=== PATIENT | female | born 1990 | race Caucasian/White ===

== ENCOUNTER 2018-04-28 16:59 | Emergency (ER) | payer OTHER, SELFPAY ==
[2018-04-28 17:21] VITALS: BP 115/59; PULSE 90; RESP 16; TEMP 36.8; O2SAT 95
[2018-04-28] MEDS: Ondansetron 4 MG/2 ML VIAL IVP (18:38)
[2018-04-28] MEDS: Lactated Ringers 1,000 ML 1000 ML IV (18:38)
[2018-04-28 18:39] LABS: Absolute Lymphocyte Count 0.65 k/cumm (1.2-3.4); Absolute Monocyte Count 0.34 k/cumm (0.11-0.7); Absolute Neutrophil Count 3.86 k/cumm (1.2-6.7); HCT 43.7 % (36.0-46.0); HGB 14.9 g/dL (12.0-15.5); Lymphocytes % 13.4; Mean Corp. HGB Concentration 34.1 g/dL (32.0-36.0); Mean Corpuscular Hemoglobin 30.5 pg (27.0-33.0); Mean Corpuscular Volume 89.4 fL (80-95); Mean Platelet Volume 10.1 fL (8.0-11.0); Neutrophils % 79.6; Platelet Count 193 x1000/uL (130-400); RBC 4.89 m/cumm (4.00-5.20); RBC Distribution Width 12.4 % (11.7-14.6); White Blood Cell Count 4.85 k/cumm (4.4-10.8)
[2018-04-28 18:41] LABS: Lipase 126 U/L (73-393)
[2018-04-28 18:46] LABS: ALT 15 U/L (12-78); AST 17 U/L (15-37); Albumin 3.7 g/dL (3.4-5.0); Alkaline Phosphatase 89 U/L (46-116); Anion Gap 10.1 mmol/L (3-11); BUN 11 mg/dL (7-18); Bilirubin, Total 0.7 mg/dL (0.2-1.0); CO2 28.9 mmol/L (21.0-32.0); CREATININE 0.65 mg/dL (0.55-1.02); Chloride 101 mmol/L (98-107); Glucose 94 mg/dL (70-100); Potassium 3.6 mmol/L (3.5-5.1); Sodium 140 mmol/L (136-145); Total Protein 8.3 g/dL (6.4-8.2)
[2018-04-28 18:51] LABS: Bilirubin Small (Negative); Blood Negative (Negative); Clarity Clear; Glucose Negative (Negative); Ketones 80 mg/dL (Negative); Leukocyte Esterase Negative (Negative); Nitrite Negative (Negative); Specific Gravity >= 1.030 (1.005-1.025); pH 6.5 (5-8)
[2018-04-28 18:52] LABS: Calcium 8.9 mg/dL (8.5-10.1)
[2018-04-28 18:56] LABS: Bacteria Negative HPF (Negative); C & S Indicated? Yes; Casts Negative LPF (Negative); Crystals Negative HPF (Negative); Epithelial Cells Few HPF (Negative); Mucus Heavy (Negative); RBC Negative (0-2)
--- NOTE | 2018-04-28 20:16 | ED.GENADUL_ITS ---
Discharge Plan Disposition Patient Disposition: HOME Discharge Details Chief Complaint: Nausea/Vomit/Diar Clinical Impression: Vomiting Reason For Visit: weakness / after 12 hour hrs Primary Care Provider: Mitzi Lozano ED Provider: Trent Aguila Home Meds and New Rx's Prescriptions: New ondansetron 4 mg film 4 mg PO TID PRN (Reason: nausea and vomiting) 5 Days Qty: 10 RF: 0 No Action PNV cmb#95-ferrous fumarate-FA [] 1 EACH tablet 1 ea PO QD Qty: 90 RF: 4 Discharge Instructions Instructions: Acute Nausea and Vomiting (ED) Additional Instructions: Please drink small amounts of fluid often in order to stay hydrated. Take Zofran as prescribed for nausea. Please contact your primary care physician to arrange follow-up. Return to the ER for any worsening or new concerning symptoms. Referrals: Mitzi Lozano [Primary Care Provider] - Medical Decision Making 20:15 --27-year-old female here with vomiting since last night. Abdomen benign. Mildly dehydrated on exam. Labs reviewed and nondiagnostic. Normal LFTs. No leukocytosis. Normal electrolytes. Patient does have some ketones in her urine. Patient given Zofran IV as well as IV fluid bolus. 21:12 --labs reviewed and notable for ketones in her urine and otherwise negative. No anion gap. No significant electrolyte abnormalities. Normal LFTs. patient reassessed. She is tolerating oral intake. Disposition decision was made weighing the risks and benefits of hospitalization versus outpatient treatment, the risk for further decompensation, and the patient's wishes. The patient was stable and requested discharge. Prior to discharge, my usual and customary return precautions were reviewed with the patient - this included follow-up instructions and reason to return to the emergency department if condition worsens, does not improve as expected, or other new concerns arise. HPI General Mode of arrival: ambulatory . Date/Time Provider Initiated Documentation: 04/28/18 17:48 . Limitations to Documentation: no limitations . Information obtained by: patient . HPI Narrative: 27-year-old female here with chief complaint of vomiting. Patient notes that she is been vomiting all day since last night. Vomit is nonbloody. She has associated nausea. No asso ciated abdominal pain. She does have mild headache, sore throat and mid back discomfort. She denies urinary symptoms. Related Data Home Medications Medication Instructions Recorded Confirmed PNV cmb#95-ferrous fumarate-FA 1 ea PO QD #90 tab 08/28/17 04/28/18 [Prenavite] ondansetron 4 mg PO TID PRN 5 Days #10 each 04/28/18 Previous Rx's Medication Instructions Recorded PNV cmb#95-ferrous fumarate-FA 1 ea PO QD #90 tab 08/28/17 [Prenavite] ondansetron 4 mg PO TID PRN 5 Days #10 each 04/28/18 Allergies Allergy/AdvReac Type Severity Reaction Status Date / Time No Known Drug Allergies Allergy Unverified 04/28/18 17:26 General Stated Complaint: Nausea/Vomit/Diar RITU: 3 Review of Systems Review of Systems All systems reviewed & are unremarkable except as noted in HPI and below Gastrointestinal Reports as per HPI, Denies abdominal pain and Denies hematemesis Genitourinary Denies dysuria PFSH Medical History Anxiety Idiopathic hyperprolactinemia Family History Sister No problems noted. Social History Smoking/Tobacco Use Status: Never Exam Const General: cooperative and no acute distress [facility] Head: normocephalic and atraumatic Mouth: mucous membranes dry Eyes Conjunctivae: normal conjunctivae Sclera: normal sclerae EOM: EOM intact bilaterally Neck Neck: trachea midline Resp Auscultation: clear to auscultation bilaterally, no rales, no rhonchi and no wheezes Cardio Jugular venous pressure: no JVD Rate: regular rate and not tachycardic Rhythm: regular rhythm GI Palpation: soft, not firm, no guarding, no masses, not rigid and nontender Back/Spine/Pelvis Back: no CVA tenderness Skin General skin exam: no rashes or lesions noted Neuro General: alert, awake, oriented x3 and tone normal Extrem General: no edema Psych Appearance: grossly normal Mental Status: mental status grossly normal Speech and Movement: speech and movement normal Course Vital Signs Temperature 36.8 C 04/28/18 17:21 Pulse 90 04/28/18 17:21 Respiratory Rate 16 04/28/18 17:21 Blood Pressure 115/59 L 04/28/18 17:21 Pulse Oximetry 95 04/28/18 17:21 Temperature 36.8 C 04/28/18 17:21 Temperature Source Temporal Artery Scan 04/28/18 17:21 Pulse 90 04/28/18 17:21 Respiratory Rate 16 04/28/18 17:21 Respiratory Effort 04/28/18 17:24 Blood Pressure 115/59 L 04/28/18 17:21 Blood Pressure Position Sitting 04/28/18 17:21 Pulse Oximetry 95 04/28/18 17:21 Oxygen Delivery Method Room Air 04/28/18 17:21 Oxygen Flow Rate 0 04/28/18 17:21 Pain Level 4 04/28/18 17:21 Lab/Test Results Lab/Test Results: 04/28/18 18:35 Urine - Reflex from Ua Urine Culture - Pending Laboratory Tests Range/Units 04/28/18 04/28/18 04/28/18 18:25 18:25 18:25 WBC (4.4-10.8) k/cumm 4.85 RBC (4.00-5.20) m/cumm 4.89 Hgb (12.0-15.5) g/dL 14.9 Hct (36.0-46.0) % 43.7 MCV (80-95) fL 89.4 MCH (27.0-33.0) pg 30.5 MCHC (32.0-36.0) g/dL 34.1 RDW (11.7-14.6) % 12.4 Plt Count (130-400) x1000/uL 193 MPV (8.0-11.0) fL 10.1 Immature Gran % 0.0 Neutrophils % 79.6 Lymphocytes % 13.4 Monocytes % 7.0 Eosinophils % 0.0 Basophils % 0.0 Absolute Neutrophils (1.2-6.7) k/cumm 3.86 Absolute Lymphocytes (1.2-3.4) k/cumm 0.65 L Absolute Monocytes (0.11-0.7) k/cumm 0.34 Absolute Eosinophils (0.0-0.7) k/cumm 0.00 Absolute Basophils (0.0-0.2) k/cumm 0.00 Sodium (136-145) mmol/L 140 Potassium (3.5-5.1) mmol/L 3.6 Chloride (98-107) mmol/L 101 Carbon Dioxide (21.0-32.0) mmol/L 28.9 Anion Gap (3-11) mmol/L 10.1 BUN (7-18) mg/dL 11 Creatinine (0.55-1.02) mg/dL 0.65 Estimated GFR/1.73 m2 (mL/min/1.73m2) >= 60.00 Glucose (70-100) mg/dL 94 Calcium (8.5-10.1) mg/dL 8.9 Total Bilirubin (0.2-1.0) mg/dL 0.7 AST (15-37) U/L 17 ALT (12-78) U/L 15 Alkaline Phosphatase (46-116) U/L 89 Total Protein (6.4-8.2) g/dL 8.3 H Albumin (3.4-5.0) g/dL 3.7 Lipase (73-393) U/L 126 Urine Color (Yellow) Urine Clarity Urine pH (5-8) Ur Specific [place] (1.005-1.025) Urine Protein (Negative) mg/dL Urine Ketones (Negative) mg/dL Urine Blood (Negative) Urine Nitrite (Negative) Urine Bilirubin (Negative) Urine Urobilinogen (Up TO 0.2) EU/dL Ur Leukocyte Esterase (Negative) Urine RBC (0-2) Urine WBC (0-5) HPF Ur Epithelial Cells (Negative) HPF Urine Crystals (Negative) HPF Urine Bacteria (Negative) HPF Urine Casts (Negative) LPF Urine Mucus (Negative) Ur Culture Indicated? Urine Glucose (Negative) mg/dL Range/Units 04/28/18 18:35 WBC (4.4-10.8) k/cumm RBC (4.00-5.20) m/cumm Hgb (12.0-15.5) g/dL Hct (36.0-46.0) % MCV (80-95) fL MCH (27.0-33.0) pg MCHC (32.0-36.0) g/dL RDW (11.7-14.6) % Plt Count (130-400) x1000/uL MPV (8.0-11.0) fL Immature Gran % Neutrophils % Lymphocytes % Monocytes % Eosinophils % Basophils % Absolute Neutrophils (1.2-6.7) k/cumm Absolute Lymphocytes (1.2-3.4) k/cumm Absolute Monocytes (0.11-0.7) k/cumm Absolute Eosinophils (0.0-0.7) k/cumm Absolute Basophils (0.0-0.2) k/cumm Sodium (136-145) mmol/L Potassium (3.5-5.1) mmol/L Chloride (98-107) mmol/L Carbon Dioxide (21.0-32.0) mmol/L Anion Gap (3-11) mmol/L BUN (7-18) mg/dL Creatinine (0.55-1.02) mg/dL Estimated GFR/1.73 m2 (mL/min/1.73m2) Glucose (70-100) mg/dL Calcium (8.5-10.1) mg/dL Total Bilirubin (0.2-1.0) mg/dL AST (15-37) U/L ALT (12-78) U/L Alkaline Phosphatase (46-116) U/L Total Protein (6.4-8.2) g/dL Albumin (3.4-5.0) g/dL Lipase (73-393) U/L Urine Color (Yellow) Yellow Urine Clarity Clear Urine pH (5-8) 6.5 Ur Specific [place] (1.005-1.025) >= 1.030 H Urine Protein (Negative) mg/dL Trace H Urine Ketones (Negative) mg/dL 80 H Urine Blood (Negative) Negative Urine Nitrite (Negative) Negative Urine Bilirubin (Negative) Small H Urine Urobilinogen (Up TO 0.2) EU/dL 1.0 H Ur Leukocyte Esterase (Negative) Negative Urine RBC (0-2) Negative Urine WBC (0-5) HPF 5-10 Ur Epithelial Cells (Negative) HPF Few Urine Crystals (Negative) HPF Negative Urine Bacteria (Negative) HPF Negative Urine Casts (Negative) LPF Negative Urine Mucus (Negative) Heavy Ur Culture Indicated? Yes Urine Glucose (Negative) mg/dL Negative POC- Test(urine) Negative
[2018-04-28 20:40] LABS: HCG Qual (Serum) Negative
[2018-04-28 20:52] VITALS: BP 105/67; PULSE 67; RESP 16; TEMP 37.1; O2SAT 99
== END 2018-04-28 21:27 | disposition home or self-care (01) ==
PROVIDERS: Emergency Provider Student in an Organized Health Care Education/Training Program; PCP Nurse Practitioner Family
DX: R11.2 Nausea with vomiting, unspecified (principal); E86.0 Dehydration
CPT/HCPCS: 36415; 80053; 81025; 83690; 96361; 96374; 99284; 81003; 81015; 84703; 85025; 87086; J2405

== ENCOUNTER 2018-06-16 07:32 | Emergency (ER) | payer OTHER, SELFPAY ==
[2018-06-16 07:37] VITALS: BP 112/68; PULSE 93; RESP 12; TEMP 37.1; O2SAT 97
--- NOTE | 2018-06-16 07:57 | W.ED.GENAD ---
Discharge Plan Disposition Patient Disposition: HOME Condition: Stable Discharge Details Chief Complaint: Nausea/Vomit/Diar Clinical Impression: Nausea and vomiting Primary Care Provider: Mitzi Lozano ED Provider: Pati Aguila Home Meds and New Rx's Prescriptions: No Action No Known Home Meds RF: 0 Discharge Instructions Instructions: Acute Nausea and Vomiting (ED) Additional Instructions: Please return immediately to the emergency department if you develop any new or worsening symptoms or if you become otherwise concerned. It is extremely important that you make an appointment to be seen as soon as possible in follow-up by your primary care doctor. Referrals: Mitzi Lozano [Primary Care Provider] - Discharge Data Discharge Date/Time-TO BE ENTERED AT DEPARTURE: 06/16/18 11:47 Medical Decision Making Kathie Gil is a woman without reported history of medical problems who presented to the emergency department with subjective fevers yesterday and vomiting and diarrhea that began yesterday with vomiting persisting into this morning. On exam patient is well and nontoxic appearing. She has benign cardiopulmonary exam and a benign abdominal exam. There are no intraoral abnormalities. Concern for gastroenteritis versus influenza versus other. Exam/history is not consistent with acute emergent intra-abdominal process, meningitis, sepsis, acute emergent intracranial process, dental abscess or infection. Plan for screening labs, IV fluid hydration, IV Zofran. Will monitor and reassess. Patient reports feeling much better after Zofran and IV fluids. Taking PO without issue. She requests discharge to home. Patient reports that she has Zofran at home from a prior prescription, and does not want a new prescription at this time. Patient passed p.o. challenge without issue. I had a lengthy discussion with the patient regarding return to emergency department precautions, importance of outpatient follow-up with her PCP, and home care. Patient verbalized understanding the plan was amenable. All questions were answered. Medical Records Medical records reviewed: Yes I reviewed the patient's medical records. Lab Data Lab results reviewed: Yes I reviewed the patient's lab results. 06/16/18 08:10 Nasopharynx Influenza Types A,B Antigen - Final Laboratory Tests Range/Units 06/16/18 06/16/18 06/16/18 07:53 07:53 08:36 WBC (4.4-10.8) k/cumm 7.34 RBC (4.00-5.20) m/cumm 4.73 Hgb (12.0-15.5) g/dL 14.2 Hct (36.0-46.0) % 42.9 MCV (80-95) fL 90.7 MCH (27.0-33.0) pg 30.0 MCHC (32.0-36.0) g/dL 33.1 RDW (11.7-14.6) % 13.6 Plt Count (130-400) x1000/uL 240 MPV (8.0-11.0) fL 10.0 Immature Gran % 0.0 Neutrophils % 89.8 Lymphocytes % 7.5 Monocytes % 2.5 Eosinophils % 0.1 Basophils % 0.1 Absolute Neutrophils (1.2-6.7) k/cumm 6.59 Absolute Lymphocytes (1.2-3.4) k/cumm 0.55 L Absolute Monocytes (0.11-0.7) k/cumm 0.18 Absolute Eosinophils (0.0-0.7) k/cumm 0.01 Absolute Basophils (0.0-0.2) k/cumm 0.01 Sodium (136-145) mmol/L 137 Potassium (3.5-5.1) mmol/L 4.2 Chloride (98-107) mmol/L 98 Carbon Dioxide (21.0-32.0) mmol/L 27.4 Anion Gap (3-11) mmol/L 11.6 H BUN (7-18) mg/dL 15 Creatinine (0.55-1.02) mg/dL 0.64 Estimated GFR/1.73 m2 (mL/min/1.73m2) >= 60.00 Glucose (70-100) mg/dL 122 H Calcium (8.5-10.1) mg/dL 8.8 Total Bilirubin (0.2-1.0) mg/dL 0.8 AST (15-37) U/L 27 ALT (12-78) U/L 19 Alkaline Phosphatase (46-116) U/L 96 Total Protein (6.4-8.2) g/dL 8.6 H Albumin (3.4-5.0) g/dL 4.2 Urine Color (Yellow) Yellow Urine Clarity Clear Urine pH (5-8) 8.5 H Ur Specific [place] (1.005-1.025) 1.015 Urine Protein (Negative) mg/dL 30 H Urine Ketones (Negative) mg/dL 40 H Urine Blood (Negative) Negative Urine Nitrite (Negative) Negative Urine Bilirubin (Negative) Negative Urine Urobilinogen (Up TO 0.2) EU/dL 1.0 H Ur Leukocyte Esterase (Negative) Negative Urine RBC (0-2) 0-2 Urine WBC (0-5) HPF 3-5 Ur Epithelial Cells (Negative) HPF Many Urine Crystals (Negative) HPF Negative Urine Bacteria (Negative) HPF Few Urine Casts (Negative) LPF Negative Urine Mucus (Negative) Moderate Urine Other (Negative) Few renal Ur Culture Indicated? No/sq. contamination Urine Glucose (Negative) mg/dL Negative HPI General Mode of arrival: ambulatory. Date/Time Provider Initiated Documentation: 06/16/18 07:57. Limitations to Documentation: no limitations. Information obtained by: patient and RN notes reviewed. HPI Narrative: Kathie Gil is a 27-year-old woman without reported medical problems presenting to the emergency department for nausea, vomiting, diarrhea. Patient reports that she has had a mild nonproductive cough for the past week. 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 Patient reports the vomiting persisted throughout the night and into this morning. She also had some diarrhea last night that has resolved. She has not attempted to eat or drink since vomiting began last night. Patient reports that she has had chronic pain to her left upper canine for the past month due to an impacted tooth. She reports that the pain has been unchanged. She has had no swelling or drainage around the area of pain. She reports mild generalized abdominal pain that began after she started vomiting that she feels is related to vomiting repeatedly. She denies headaches or any other pain. No shortness of breath, no rash, no focal weakness. Related Data Home Medications Medication Instructions Recorded Confirmed Unknown [No Known Home Meds] 06/16/18 06/16/18 Allergies Allergy/AdvReac Type Severity Reaction Status Date / Time No Known Drug Allergies Allergy Unverified 06/16/18 07:41 General Stated Complaint: Nausea/Vomit/Diar RITU: 3 Review of Systems Review of Systems Constitutional: Reports subjective fevers Eyes: denies eye pain ENT: denies facial pain, sore throat, reports chronic unchanged dental Cardiovascular: denies chest pain, edema Respiratory: denies SOB, reports mild cough cough GI: Reports mild abdominal pain, vomiting, diarrhea : denies flank pain MSK: denies back pain, neck pain, arthralgias, myalgias Skin: denies rash Neuro: denies headaches, numbness, weakness PFSH Medical History Anxiety Idiopathic hyperprolactinemia Social History Smoking/Tobacco Use Status: Never Drug use: Never Substance use type: does not use Do you feel safe at home: Yes Do you feel safe in your relationship?: Yes Female Reproductive History Menstrual control method: none History History 2 Para 2 Hx # Term Pregnancies Multiple births Hx # Pregnancies Ectopic pregnancies AB induced Hx Number of Living Children AB spontaneous Exam Narrative Exam Narrative: Constitutional: well and [id number], pleasant, conversing normally HENT: head atraumatic/normocephalic/normal inspection, mucous membranes moist. Tenderness or edema over left upper canine in area of chronic pain, no intraoral lesion, normal posterior pharynx, benign intraoral exam. Eyes: conjunctiva normal, sclera normal, pupils 3mm b/l Neck: no stridor, normal ROM, trachea midline Chest: normal inspection Resp: normal work of breathing, LCTAB Cardio: normal rate, normal rhythm, no murmur appreciated GI: abdomen soft, non-tender, non-distended Back: normal inspection, no rash Skin: warm, dry, normal color, no rash Neuro: alert, not altered, grossly non-focal, normal tone Ext: no edema Psych: normal mood, normal affect, normal behavior Course Vital Signs Temperature 37.1 C 06/16/18 07:37 Pulse 93 H 06/16/18 07:37 Respiratory Rate 12 06/16/18 07:37 Blood Pressure 112/68 06/16/18 07:37 Pulse Oximetry 97 06/16/18 07:37 Temperature 37.1 C 06/16/18 07:37 Temperature Source Temporal Artery Scan 06/16/18 07:37 Pulse 93 H 06/16/18 07:37 Respiratory Rate 12 06/16/18 07:37 Respiratory Effort Non-Labored 06/16/18 07:38 Blood Pressure 112/68 06/16/18 07:37 Blood Pressure Position Sitting 06/16/18 07:37 Pulse Oximetry 97 06/16/18 07:37 Oxygen Delivery Method Room Air 06/16/18 07:37 Oxygen Flow Rate 0 06/16/18 07:37 Pain Level 0 06/16/18 07:37
[2018-06-16] MEDS: Normal Saline 1,000 ML 1000 ML IV ×2 (07:59→09:47)
--- NOTE | 2018-06-16 08:11 | ED.GENADUL_ITS ---
Discharge Plan Disposition Patient Disposition: HOME Condition: Stable Discharge Details Chief Complaint: Nausea/Vomit/Diar Clinical Impression: Nausea and vomiting Primary Care Provider: Mitzi Lozano ED Provider: Pati Aguila Home Meds and New Rx's Prescriptions: No Action No Known Home Meds RF: 0 Discharge Instructions Instructions: Acute Nausea and Vomiting (ED) Additional Instructions: Please return immediately to the emergency department if you develop any new or worsening symptoms or if you become otherwise concerned. It is extremely important that you make an appointment to be seen as soon as possible in follow- up by your primary care doctor. Referrals: Mitzi Lozano [Primary Care Provider] - Discharge Data Discharge Date/Time-TO BE ENTERED AT DEPARTURE: 06/16/18 11:47 Medical Decision Making Kathie Gil is a woman without reported history of medical problems who presented to the emergency department with subjective fevers yesterday and vomiting and diarrhea that began yesterday with vomiting persisting into this morning. On exam patient is well and nontoxic appearing. She has benign cardiopulmonary exam and a benign abdominal exam. There are no intraoral abnormalities. Concern for gastroenteritis versus influenza versus other. Exam/history is not consistent with acute emergent intra-abdominal process, meningitis, sepsis, acute emergent intracranial process, dental abscess or infection. Plan for screening labs, IV fluid hydration, IV Zofran. Will monitor and reassess. Patient reports feeling much better after Zofran and IV fluids. Taking PO without issue. She requests discharge to home. Patient reports that she has Zofran at home from a prior prescription, and does not want a new prescription at this time. Patient passed p.o. challenge without issue. I had a lengthy discussion with the patient regarding return to emergency department precautions, importance of outpatient follow-up with her PCP, and home care. Patient verbalized understanding the plan was amenable. All questions were answered. Medical Records Medical records reviewed: Yes I reviewed the patient's medical records. Lab Data Lab results reviewed: Yes I reviewed the patient's lab results. 06/16/18 08:10 Nasopharynx Influenza Types A,B Antigen - Final Laboratory Tests Range/Units 06/16/18 06/16/18 06/16/18 07:53 07:53 08:36 WBC (4.4-10.8) k/cumm 7.34 RBC (4.00-5.20) m/cumm 4.73 Hgb (12.0-15.5) g/dL 14.2 Hct (36.0-46.0) % 42.9 MCV (80-95) fL 90.7 MCH (27.0-33.0) pg 30.0 MCHC (32.0-36.0) g/dL 33.1 RDW (11.7-14.6) % 13.6 Plt Count (130-400) x1000/uL 240 MPV (8.0-11.0) fL 10.0 Immature Gran % 0.0 Neutrophils % 89.8 Lymphocytes % 7.5 Monocytes % 2.5 Eosinophils % 0.1 Basophils % 0.1 Absolute Neutrophils (1.2-6.7) k/cumm 6.59 Absolute Lymphocytes (1.2-3.4) k/cumm 0.55 L Absolute Monocytes (0.11-0.7) k/cumm 0.18 Absolute Eosinophils (0.0-0.7) k/cumm 0.01 Absolute Basophils (0.0-0.2) k/cumm 0.01 Sodium (136-145) mmol/L 137 Potassium (3.5-5.1) mmol/L 4.2 Chloride (98-107) mmol/L 98 Carbon Dioxide (21.0-32.0) mmol/L 27.4 Anion Gap (3-11) mmol/L 11.6 H BUN (7-18) mg/dL 15 Creatinine (0.55-1.02) mg/dL 0.64 Estimated GFR/1.73 m2 (mL/min/1.73m2) >= 60.00 Glucose (70-100) mg/dL 122 H Calcium (8.5-10.1) mg/dL 8.8 Total Bilirubin (0.2-1.0) mg/dL 0.8 AST (15-37) U/L 27 ALT (12-78) U/L 19 Alkaline Phosphatase (46-116) U/L 96 Total Protein (6.4-8.2) g/dL 8.6 H Albumin (3.4-5.0) g/dL 4.2 Urine Color (Yellow) Yellow Urine Clarity Clear Urine pH (5-8) 8.5 H Ur Specific [place] (1.005-1.025) 1.015 Urine Protein (Negative) mg/dL 30 H Urine Ketones (Negative) mg/dL 40 H Urine Blood (Negative) Negative Urine Nitrite (Negative) Negative Urine Bilirubin (Negative) Negative Urine Urobilinogen (Up TO 0.2) EU/dL 1.0 H Ur Leukocyte Esterase (Negative) Negative Urine RBC (0-2) 0-2 Urine WBC (0-5) HPF 3-5 Ur Epithelial Cells (Negative) HPF Many Urine Crystals (Negative) HPF Negative Urine Bacteria (Negative) HPF Few Urine Casts (Negative) LPF Negative Urine Mucus (Negative) Moderate Urine Other (Negative) Few renal Ur Culture Indicated? No/sq. contamination Urine Glucose (Negative) mg/dL Negative HPI General Mode of arrival: ambulatory . Date/Time Provider Initiated Documentation: 06/16/18 07:57 . Limitations to Documentation: no limitations . Information obtained by: patient and RN notes reviewed . HPI Narrative: Kathie Gil is a 27-year-old woman without reported medical problems presenting to the emergency department for nausea, vomiting, diarrhea. Patient reports that she has had a mild nonproductive cough for the past week. 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 Patient reports the vomiting persisted throughout the night and into this morning. She also had some diarrhea last night that has resolved. She has not attempted to eat or drink since vomiting began last night. Patient reports that she has had chronic pain to her left upper canine for the past month due to an impacted tooth. She reports that the pain has been unchanged. She has had no swelling or drainage around the area of pain. She reports mild generalized abdominal pain that began after she started vomiting that she feels is related to vomiting repeatedly. She denies headaches or any other pain. No shortness of breath, no rash, no focal weakness. Related Data Home Medications Medication Instructions Recorded Confirmed Unknown [No Known Home Meds] 06/16/18 06/16/18 Allergies Allergy/AdvReac Type Severity Reaction Status Date / Time No Known Drug Allergies Allergy Unverified 06/16/18 07:41 General Stated Complaint: Nausea/Vomit/Diar RITU: 3 Review of Systems Review of Systems Constitutional: Reports subjective fevers Eyes: denies eye pain ENT: denies facial pain, sore throat, reports chronic unchanged dental Cardiovascular: denies chest pain, edema Respiratory: denies SOB, reports mild cough cough GI: Reports mild abdominal pain, vomiting, diarrhea : denies flank pain MSK: denies back pain, neck pain, arthralgias, myalgias Skin: denies rash Neuro: denies headaches, numbness, weakness PFSH Medical History Anxiety Idiopathic hyperprolactinemia Social History Smoking/Tobacco Use Status: Never Drug use: Never Substance use type: does not use Do you feel safe at home: Yes Do you feel safe in your relationship?: Yes Female Reproductive History Menstrual control method: none History History 2 Para 2 Hx # Term Pregnancies Multiple births Hx # Pregnancies Ectopic pregnancies AB induced Hx Number of Living Children AB spontaneous Exam Narrative Exam Narrative: Constitutional: well and [id number], pleasant, convers ing normally HENT: head atraumatic/normocephalic/normal inspection, mucous membranes moist. Tenderness or edema over left upper canine in area of chronic pain, no intraoral lesion, normal posterior pharynx, benign intraoral exam. Eyes: conjunctiva normal, sclera normal, pupils 3mm b/l Neck: no stridor, normal ROM, trachea midline Chest: normal inspection Resp: normal work of breathing, LCTAB Cardio: normal rate, normal rhythm, no murmur appreciated GI: abdomen soft, non-tender, non-distended Back: normal inspection, no rash Skin: warm, dry, normal color, no rash Neuro: alert, not altered, grossly non-focal, normal tone Ext: no edema Psych: normal mood, normal affect, normal behavior Course Vital Signs Temperature 37.1 C 06/16/18 07:37 Pulse 93 H 06/16/18 07:37 Respiratory Rate 12 06/16/18 07:37 Blood Pressure 112/68 06/16/18 07:37 Pulse Oximetry 97 06/16/18 07:37 Temperature 37.1 C 06/16/18 07:37 Temperature Source Temporal Artery Scan 06/16/18 07:37 Pulse 93 H 06/16/18 07:37 Respiratory Rate 12 06/16/18 07:37 Respiratory Effort Non-Labored 06/16/18 07:38 Blood Pressure 112/68 06/16/18 07:37 Blood Pressure Position Sitting 06/16/18 07:37 Pulse Oximetry 97 06/16/18 07:37 Oxygen Delivery Method Room Air 06/16/18 07:37 Oxygen Flow Rate 0 06/16/18 07:37 Pain Level 0 06/16/18 07:37
[2018-06-16] MEDS: Ondansetron 4 MG/2 ML VIAL IVP (08:15)
[2018-06-16 08:24] LABS: Absolute Basophil Count 0.01 k/cumm (0.0-0.2); Absolute Eosinophil Count 0.01 k/cumm (0.0-0.7); Absolute Lymphocyte Count 0.55 k/cumm (1.2-3.4); Absolute Monocyte Count 0.18 k/cumm (0.11-0.7); Absolute Neutrophil Count 6.59 k/cumm (1.2-6.7); Basophils % 0.1; Eosinophils % 0.1; HCT 42.9 % (36.0-46.0); HGB 14.2 g/dL (12.0-15.5); Lymphocytes % 7.5; Mean Corp. HGB Concentration 33.1 g/dL (32.0-36.0); Mean Corpuscular Volume 90.7 fL (80-95); Monocytes % 2.5; Neutrophils % 89.8; Platelet Count 240 x1000/uL (130-400); RBC 4.73 m/cumm (4.00-5.20); RBC Distribution Width 13.6 % (11.7-14.6); White Blood Cell Count 7.34 k/cumm (4.4-10.8)
[2018-06-16 08:36] LABS: ALT 19 U/L (12-78); AST 27 U/L (15-37); Albumin 4.2 g/dL (3.4-5.0); Alkaline Phosphatase 96 U/L (46-116); Anion Gap 11.6 mmol/L (3-11); BUN 15 mg/dL (7-18); Bilirubin, Total 0.8 mg/dL (0.2-1.0); CO2 27.4 mmol/L (21.0-32.0); CREATININE 0.64 mg/dL (0.55-1.02); Calcium 8.8 mg/dL (8.5-10.1); Chloride 98 mmol/L (98-107); Glucose 122 mg/dL (70-100); Potassium 4.2 mmol/L (3.5-5.1); Sodium 137 mmol/L (136-145); Total Protein 8.6 g/dL (6.4-8.2)
[2018-06-16 08:47] LABS: Bilirubin Negative (Negative); Blood Negative (Negative); Clarity Clear; Glucose Negative (Negative); Ketones 40 mg/dL (Negative); Leukocyte Esterase Negative (Negative); Nitrite Negative (Negative); Specific Gravity 1.015 (1.005-1.025); pH 8.5 (5-8)
[2018-06-16 08:57] LABS: Bacteria Few HPF (Negative); C & S Indicated? No/Sq. Contamination; Casts Negative LPF (Negative); Crystals Negative HPF (Negative); Epithelial Cells Many HPF (Negative); Mucus Moderate (Negative); Other Cells Few Renal (Negative); RBC 0-2 (0-2)
== END 2018-06-16 11:47 | disposition home or self-care (01) ==
PROVIDERS: Emergency Provider Student in an Organized Health Care Education/Training Program; PCP Nurse Practitioner Family
DX: R11.2 Nausea with vomiting, unspecified (principal)
CPT/HCPCS: 36415; 80053; 81025; 87449; 96361; 96374; 99284; 81003; 81015; 85025; J2405

== ENCOUNTER 2018-12-10 09:18 | Emergency (ER) | payer OTHER, SELFPAY ==
[2018-12-10 09:23] VITALS: BP 111/72; PULSE 82; RESP 20; TEMP 37; O2SAT 98
[2018-12-10 09:52] LABS: Bilirubin Negative (Negative); Blood Moderate (Negative); Clarity Cloudy (Clear); Glucose Negative (Negative); Ketones Negative (Negative); Leukocyte Esterase Small (Negative); Nitrite Positive (Negative); Urobilinogen 0.2 EU/dL (Up TO 0.2)
[2018-12-10] MEDS: Ondansetron 4 MG/2 ML VIAL IVP (09:56)
[2018-12-10 09:57] LABS: Abs Immature Grans 0.01 k/cumm (0.0-0.09); Absolute Basophil Count 0.02 k/cumm (0.0-0.2); Absolute Eosinophil Count 0.02 k/cumm (0.0-0.7); Absolute Lymphocyte Count 0.51 k/cumm (1.2-3.4); Absolute Monocyte Count 0.38 k/cumm (0.11-0.7); Absolute Neutrophil Count 5.31 k/cumm (1.2-6.7); Basophils % 0.3; Eosinophils % 0.3; HCT 42.9 % (36.0-46.0); HGB 14.4 g/dL (12.0-15.5); Immature Grans % 0.2; Lymphocytes % 8.2; Mean Corp. HGB Concentration 33.6 g/dL (32.0-36.0); Mean Corpuscular Hemoglobin 30.3 pg (27.0-33.0); Mean Corpuscular Volume 90.1 fL (80-95); Mean Platelet Volume 9.9 fL (8.0-11.0); Monocytes % 6.1; Neutrophils % 84.9; Platelet Count 178 x1000/uL (130-400); RBC 4.76 m/cumm (4.00-5.20); RBC Distribution Width 12.7 % (11.7-14.6); White Blood Cell Count 6.25 k/cumm (4.4-10.8)
[2018-12-10] MEDS: Normal Saline 1,000 ML 1000 ML IV (10:00)
[2018-12-10 10:12] LABS: ALT 16 U/L (14-59); AST 16 U/L (15-37); Albumin 4.5 g/dL (3.4-5.0); Alkaline Phosphatase 78 U/L (46-116); Anion Gap 10.2 mmol/L (3-11); BUN 8 mg/dL (7-18); Bilirubin, Total 0.5 mg/dL (0.2-1.0); CO2 25.8 mmol/L (21.0-32.0); CREATININE 0.67 mg/dL (0.55-1.02); Calcium 8.9 mg/dL (8.5-10.1); Chloride 104 mmol/L (98-107); Glucose 89 mg/dL (70-100); Lipase 118 U/L (73-393); Potassium 3.8 mmol/L (3.5-5.1); Sodium 140 mmol/L (136-145); Total Protein 8.3 g/dL (6.4-8.2)
[2018-12-10 10:13] LABS: Bacteria Many HPF (Negative); C & S Indicated? Yes; Casts Negative LPF (Negative); Crystals Negative HPF (Negative); Epithelial Cells Few HPF (Negative); Mucus Negative (Negative); RBC 20-50 (0-2)
--- NOTE | 2018-12-10 10:25 | W.ED.GENAD ---
Discharge Plan Disposition Patient Disposition: HOME Condition: Good Discharge Details Chief Complaint: Abd Prob Clinical Impression: Left renal stone, UTI (urinary tract infection) Primary Care Provider: Mitzi Lozano ED Provider: Lokesh Laws Home Meds and New Rx's Prescriptions: New cephalexin [Keflex] 500 mg capsule 500 mg PO Q6H 3 Days Qty: 12 RF: 0 Discharge Instructions Instructions: Urinary Tract Infection in Women (ED) Additional Instructions: Your CT scan shows evidence that you may have passed a small kidney stone. You have a very mild urinary tract infection. Please take the antibiotic as directed. Please take 10 to 12 cups of water per day, take Tylenol and Motrin as needed for pain. You do have a renal cyst on your left that does require a renal ultrasound in the future. Please discuss this with your primary care provider. If you notice any worsening of your symptoms, or any new symptoms such as vomiting, diarrhea, fever, chills, shortness of breath, chest pain, numbness, weakness, or fainting , please return immediately to the emergency department for reevaluation. Please follow up with your primary care provider as soon as possible for reassessment and reevaluation. As always, it was a pleasure participating in your medical care today. Referrals: Mitzi Lozano [Primary Care Provider] - Discharge Data Discharge Date/Time-TO BE ENTERED AT DEPARTURE: 12/10/18 12:15 Medical Decision Making This is a pleasant 28-year-old female who presents today for evaluation of 2 episodes of vomiting mild nausea left-sided flank pain and chills. Physical exam demonstrates a notably unremarkable abdomen, no pain at McBurney's point, negative Nielson sign. She does have minimal left CVA tenderness, positive left heel strike for left CVA tenderness. Signs and symptoms appear inconsistent with appendicitis, more concerning for urolithiasis or gastroenteritis. We will rehydrate, get basic labs and urinalysis, Noncon CT to evaluate for kidney stone reassess. CT results have returned, there is evidence of mild hydronephrosis giving the signs and symptoms concerning for recently passed stone. Particularly on the left. Bedside demonstrates a small stone in the renal pelvis, no other abnormalities. Her work-up is relatively benign, no white count, no fever or chills, lipase normal, urinalysis is positive for nitrates, notable elevation in RBCs, minimal WBCs. With no evidence of current retained stone, do suspect that the patient did pass a stone. I feel that infection is notably unlikely and clinically inconsistent especially in regards to pyelonephritis or severe infection however because of her being nitrite positive, I do feel that out of an abundance of precaution conservative treatment with Keflex is certainly reasonable at this time. We will give antibiotics for treatment of very mild UTI, recommend continued hydration with NSAIDs as needed for pain. Of note the patient has near complete resolution of her pain at this time. I have extensively reviewed the treatment plan and discharge instructions with the patient. I have addressed all patient concerns at this time. The patient was made aware of what symptoms to monitor for that would warrant a return to the emergency department. Discussed the plan with the patient, they demonstrate verbal understanding and agreement with our assessment and plan at this time. HPI General Date/Time Provider Initiated Documentation: 12/10/18 09:25. HPI Narrative: This is a 28-year-old female with no significant past medical history who presents today for evaluation of nausea, 2 episodes of vomiting that started this morning with no evidence of hematemesis or coffee-ground emesis, as well as symptoms of mild chills and left-sided flank pain and suprapubic pain. Patient denies any dysuria, increase in urinary frequency or pressure. She denies any vaginal discharge or pelvic pain. She denies any significant abdominal pain. She denies any diarrhea. No previous abdominal surgeries. She has had 2 vaginal deliveries. She denies any aggravating or relieving factors. She does admit to taking 2 or 3 shots of aisha yesterday but that is all. She has no other complaints at this time. No other modifying factors. She denies any other sick contacts, history of kidney stones, or other complaints. Related Data Home Medications Medication Instructions Recorded Confirmed cephalexin [Keflex] 500 mg PO Q6H 3 Days #12 cap 12/10/18 Previous Rx's Medication Instructions Recorded cephalexin [Keflex] 500 mg PO Q6H 3 Days #12 cap 12/10/18 Allergies Allergy/AdvReac Type Severity Reaction Status Date / Time No Known Drug Allergies Allergy Unverified 12/10/18 09:26 General Stated Complaint: Abd Prob RITU: 3 Review of Systems Review of Systems ROS Unobtainable: All systems reviewed & are unremarkable except as noted in HPI and below PFSH Medical History (Updated 11/20/18 @ 08:59 by Jeanette Hobson NP) Anxiety Female infertility, secondary (Acute) Idiopathic hyperprolactinemia Social History Smoking/Tobacco Use Status: Never Drug use: Never Substance use type: does not use Do you feel safe at home: Yes Do you feel safe in your relationship?: Yes Female Reproductive History Menstrual control method: none History History 2 Para 2 Hx # Term Pregnancies Multiple births Hx # Pregnancies Ectopic pregnancies AB induced Hx Number of Living Children AB spontaneous Exam Narrative Exam Narrative: 1.Const: Well-nourished, Well-developed, appearing stated age 2.Eyes: PERRL, no conjunctival injection, and symmetrical lids. 3.ENT: Atraumatic external nose and ears. dry MM. Neck: Symmetric, trachea midline, No thyromegaly. 4.CVS: +S1/S2, No murmurs or gallops. Peripheral pulses 2+ and equal in all extremities. Brisk capillary refill in all extremities. 5.RESP: Unlabored respiratory effort. Clear to auscultation bilaterally. No wheezes rales or rhonchi 6.GI: Soft, Nontender/Nondistended, No hepatosplenomegaly. No guarding or rebound. No pain at McBurney's point, negative Nielson sign, minimal left CVA tenderness, negative obturator and psoas sign. Left sided heel strike elicits some mild left flank pain. No pelvic tenderness or suprapubic tenderness. 7.MSK: Normocephalic/Atraumatic, Extremities w/o deformity or ttp No cyanosis or clubbing, Normal movement of all extremities 8.Skin: Warm, Dry. No rashes or lesions. 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 Sensation grossly intact, no focal neurologic deficits. 10.Psych: (AAO) x3. Appropriate mood and affect Course Vital Signs Vital signs: Vital Signs Temperature 37 C 12/10/18 09:23 Pulse 82 12/10/18 09:23 Respiratory Rate 20 12/10/18 09:23 Blood Pressure 111/72 12/10/18 09:23 Pulse Oximetry 98 12/10/18 09:23 Temperature 37 C 12/10/18 09:23 Temperature Source Temporal Artery Scan 12/10/18 09:23 Pulse 82 12/10/18 09:23 Respiratory Rate 20 12/10/18 09:23 Respiratory Effort Non-Labored 12/10/18 10:10 Blood Pressure 111/72 12/10/18 09:23 Pulse Oximetry 98 12/10/18 09:23 Oxygen Delivery Method Room Air 12/10/18 09:23 Oxygen Flow Rate 0 12/10/18 09:23 Pain Level 3 12/10/18 09:23 Lab/Test Results Lab/Test Results: 12/10/18 09:29 Urine - Reflex from Ua Urine Culture - Pending Laboratory Tests Range/Units 12/10/18 12/10/18 12/10/18 09:29 09:51 09:51 WBC (4.4-10.8) k/cumm 6.25 RBC (4.00-5.20) m/cumm 4.76 Hgb (12.0-15.5) g/dL 14.4 Hct (36.0-46.0) % 42.9 MCV (80-95) fL 90.1 MCH (27.0-33.0) pg 30.3 MCHC (32.0-36.0) g/dL 33.6 RDW (11.7-14.6) % 12.7 Plt Count (130-400) x1000/uL 178 MPV (8.0-11.0) fL 9.9 Immature Gran % 0.2 Neutrophils % 84.9 Lymphocytes % 8.2 Monocytes % 6.1 Eosinophils % 0.3 Basophils % 0.3 Absolute Neutrophils (1.2-6.7) k/cumm 5.31 Absolute Lymphocytes (1.2-3.4) k/cumm 0.51 L Absolute Monocytes (0.11-0.7) k/cumm 0.38 Absolute Eosinophils (0.0-0.7) k/cumm 0.02 Absolute Basophils (0.0-0.2) k/cumm 0.02 Sodium (136-145) mmol/L 140 Potassium (3.5-5.1) mmol/L 3.8 Chloride (98-107) mmol/L 104 Carbon Dioxide (21.0-32.0) mmol/L 25.8 Anion Gap (3-11) mmol/L 10.2 BUN (7-18) mg/dL 8 Creatinine (0.55-1.02) mg/dL 0.67 Estimated GFR/1.73 m2 (mL/min/1.73m2) >= 60.00 Glucose (70-100) mg/dL 89 Calcium (8.5-10.1) mg/dL 8.9 Total Bilirubin (0.2-1.0) mg/dL 0.5 AST (15-37) U/L 16 ALT (14-59) U/L 16 Alkaline Phosphatase (46-116) U/L 78 Total Protein (6.4-8.2) g/dL 8.3 H Albumin (3.4-5.0) g/dL 4.5 Lipase (73-393) U/L 118 Urine Color (Yellow) Yellow Urine Clarity (Clear) Cloudy Urine pH (5-8) 7.0 Ur Specific [place] (1.005-1.025) 1.020 Urine Protein (Negative) mg/dL Trace H Urine Ketones (Negative) mg/dL Negative Urine Blood (Negative) Moderate H Urine Nitrite (Negative) Positive H Urine Bilirubin (Negative) Negative Urine Urobilinogen (Up TO 0.2) EU/dL 0.2 Ur Leukocyte Esterase (Negative) Small H Urine RBC (0-2) 20-50 H Urine WBC (0-5) HPF 5-10 Ur Epithelial Cells (Negative) HPF Few Urine Crystals (Negative) HPF Negative Urine Bacteria (Negative) HPF Many Urine Casts (Negative) LPF Negative Urine Mucus (Negative) Negative Ur Culture Indicated? Yes Urine Glucose (Negative) mg/dL Negative POC- Test(urine) Negative
[2018-12-10] MEDS: Ketorolac 15 MG/ML VIAL IVP (10:30)
--- NOTE | 2018-12-10 10:50 | DI.CT_ITS ---
EXAM: CT ABDOMEN PELVIS WO CLINICAL HISTORY: hematuria, left flank pain, eval for stone. FINDINGS: A renal colic CT was performed. The lung bases are unremarkable. The liver, gallbladder, pancreas a nd spleen appear unremarkable. A tiny calculus is noted in the lower pole of the right kidney. Ther e is an ill-defined region of diminished absorption in the lower pole of the right kidney which canno t be characterized on this noncontrast enhanced study. Further assessment with ultrasound is recomme nded. There is some questionable very mild left hydronephrosis. There is no evidence of left nephrol ithiasis. There is no apparent left ureteral calculus. The adrenals are unremarkable. There is no ev idence of bowel obstruction. There is no evidence of free air or free fluid in the intraperitoneal sp lindsey. The bladder is unremarkable. The reproductive organs as visualized are unremarkable. There is no evidence of an aortic aneursym. No acute bony abnormality is seen. IMPRESSION: There is a question regarding mild left hydronephrosis with no evidence of nephrolithiasis or uretero lithiasis. There is a tiny calcification in the lower pole of the right kidney and a questionable ar ea of diminished absorption is also noted in the lower pole of the right kidney, further assessment w ith renal ultrasound is suggested.
[2018-12-10 11:52] VITALS: BP 97/57; PULSE 62
[2018-12-10 12:14] VITALS: BP 97/57; PULSE 62; RESP 20; TEMP 37; O2SAT 98
== END 2018-12-10 12:15 | disposition home or self-care (01) ==
PROVIDERS: Emergency Provider Student in an Organized Health Care Education/Training Program; PCP Nurse Practitioner Family
DX: R11.2 Nausea with vomiting, unspecified (principal); M54.5 Low back pain; N39.0 Urinary tract infection, site not specified
CPT/HCPCS: 36415; 80053; 81025; 83690; 87077; 96361; 96374; 96375; 99284; 74176; 81003; 81015; 85025; 87086; 87186; 99285; J1885; J2405

== ENCOUNTER 2019-01-04 08:23 | Emergency (ER) | payer OTHER, SELFPAY ==
[2019-01-04 08:32] VITALS: BP 125/63; PULSE 95; RESP 14; TEMP 38.2; O2SAT 100
--- NOTE | 2019-01-04 08:42 | ED.GENADUL_ITS ---
Discharge Plan Disposition Patient Disposition: HOME Condition: Stable Discharge Details Chief Complaint: GenMedical Clinical Impression: Acute streptococcal pharyngitis Primary Care Provider: Mitzi Lozano ED Provider: Rosa M Fisher Home Meds and New Rx's Prescriptions: No Action No Known Home Meds RF: 0 Discharge Instructions Instructions: Pharyngitis (ED) Additional Instructions: Alternate Tylenol and Motrin as needed and directed for pain or fever. Drink plenty fluids and get plenty of rest. Follow-up with your primary care doctor next week for reevaluation. Return to the emergency department if you develop any worsening or concerning symptoms. Stand Alone Forms: Work Release Discharge Data Discharge Physician: Rosa M Fisher Medical Decision Making 28-year-old female with sore throat for 2 days, vomiting x1, and fatigue. Recent contact with strep. Rapid strep positive on arrival. She has posterior pharyngeal erythema but no exudates, peritonsillar abscess and uvula midline. No drooling or submandibular swelling. Lungs clear, abdomen soft without tenderness or hepatosplenomegaly. Rapid strep done on arrival and negative. Due to pain with swallowing, she was given a dose of Decadron in addition to Tylenol for fever. test negative. She was offered Bicillin versus oral antibiotics and she preferred Bicillin injection. She was advised to follow-up with her primary care doctor for reevaluation and to return if worse. Medical Records Medical records reviewed: Yes I reviewed the patient's medical records. HPI General Mode of arrival: ambulatory . Date/Time Provider Initiated Documentation: 01/04/19 08:36 . Limitations to Documentation: no limitations . Information obtained by: patient . HPI Narrative: Patient is a 28-year-old fem alessandro who presents with sore throat for the past 2 days. She also admits to fatigue and states she had dry heaving and vomiting x1 yesterday. She states the vomitus is mainly mucus. She denies any cough. She states she was unaware of having a fever. She denies ear pain, chest pain, shortness of breath, abdominal pain or diarrhea. She states her daughter recently finished treatment for strep. Related Data Home Medications Medication Instructions Recorded Confirmed Unknown [No Known Home Meds] 01/04/19 01/04/19 Allergies Allergy/AdvReac Type Severity Reaction Status Date / Time No Known Drug Allergies Allergy Unverified 01/04/19 08:38 General Stated Complaint: GenMedical RITU: 3 Review of Systems Review of Systems ROS Unobtainable: All systems reviewed & are unremarkable except as noted in HPI and below Constitutional Constitutional: Reports as per HPI, Denies chills, Reports fatigue and Denies fever(s) Eyes Eyes: Denies blurry vision ENT Ears, Nose, Mouth, and Throat: Denies dizziness, Reports sore throat and Denies throat swelling Cardiovascular Cardiovascular: Denies chest pain and Denies dyspnea Respiratory Respiratory: Denies cough and Denies dyspnea Gastrointestinal Gastrointestinal: Denies abdominal pain, Denies diarrhea and Denies vomiting Genitourinary Genitourinary: Denies hematuria and Denies dysuria Musculoskeletal Musculoskeletal: Denies back pain and Denies numbness Integumentary/Breasts Skin/Breast: Denies lesions and Denies rash Neurologic Neurologic: Denies dizziness, Denies focal weakness and Denies numbness Endocrine Endocrine: Reports fatigue Allergic/Immunologic Allergic/Immunologic: Denies throat swelling COUNTS INCLUDE 234 BEDS AT THE [facility] Medical History Anxiety Female infertility, secondary (Acute) Idiopathic hyperprolactinemia Family History Sister No problems noted. Social History Smoking/Tobacco Use Status: Never Alcohol Intake: current Alcohol Intake frequency: holidays/special occasions only Drug use: Never Substance use type: does not use Do you feel safe at home: Yes Do you feel safe in your relationship?: Yes Female Reproductive History Menstrual control method: none History History 2 Para 2 Hx # Term Pregnancies Multiple births Hx # Pregnancies Ectopic pregnancies AB induced Hx Number of Living Children AB spontaneous Exam Const General: cooperative and healthy appearing Orientation: alert and awake HENMT Head: normal to inspection Ears: hearing grossly normal bilaterally, external ears normal and TM's normal bilaterally General nose exam: external nose normal Face and sinus: normal facial exam Mouth: oral mucosae normal Teeth and gingiva: dentition normal Throat: uvula midline, no peritonsillar masses and posterior oropharynx abnormal erythema; no exudates Eyes General: appearance normal, both eyes and all related structures Eyelids: eyelids normal Pupils: PERRL EOM: EOM intact bilaterally Neck Neck: normal visual inspection, no meningeal signs, trachea midline and supple Lymphatic: lymphadenopathy (Tender bilateral anterior cervical, minimally enlarged) Chest Chest: normal inspection of the chest Resp Effort & Inspection: normal respiratory effort and able to speak in complete sentences Auscultation: clear to auscultation bilaterally Cardio Rate: regular rate Rhythm: regular rhythm GI Inspection: normal to inspection Palpation: soft, not firm, no guarding, no hepatosplenomegaly, no masses and nontender Auscultation: normal bowel sounds Skin General skin exam: no rashes or lesions noted Neuro General: alert and awake Cognition: normal cognition Speech: speech normal Gait: normal gait Motor: muscle tone normal throughout Sensory Exam: no sensory deficits noted Extrem General: normal to inspection, full ROM and normal capillary refill Psych Appearance: grossly normal Mental Status: mental status grossly normal Speech and Movement: speech and movement normal Affect: normal affect Thought Process: normal Course Vital Signs Vital signs: Vital Signs Temperature 100.7 F H 01/04/19 08:32 Pulse 95 H 01/04/19 08:32 Respiratory Rate 14 01/04/19 08:32 Blood Pressure 125/63 01/04/19 08:32 Pulse Oximetry 100 01/04/19 08:32 Temperature 100.7 F H 01/04/19 08:32 Temperature Source Oral 01/04/19 08:32 Pulse 95 H 01/04/19 08:32 Respiratory Rate 14 01/04/19 08:32 Respiratory Effort Non-Labored 01/04/19 08:35 Blood Pressure 125/63 01/04/19 08:32 Blood Pressure Position Sitting 01/04/19 08:32 Pulse Oximetry 100 01/04/19 08:32 Oxygen Delivery Method Room Air 01/04/19 08:32 Oxygen Flow Rate 0 01/04/19 08:32 Pain Level 8 01/04/19 08:32 Lab/Test Results Lab/Test Results: 01/04/19 08:30 Nasopharynx Influenza Types A,B Antigen - Pending POC Strep Test-AIXA(Rapid) Start: 01/04/19 08:35 Freq: Status: Active Protocol: Document 01/04/19 08:41 AM (Rec: 01/04/19 08:41 AM [id number]) Strep test-AIXA(Rapid)-POC POC-Strep test-AIXA (Rapid) Positive POC-Strep test-AIXA (Rapid) Positive
[2019-01-04] MEDS: Ondansetron O.D.T. 4 MG TABEF, 3 TABS/BTL PO (09:23)
[2019-01-04] MEDS: Acetaminophen 325 MG TAB 650 MG PO (09:23)
[2019-01-04] MEDS: Dexamethasone 10 MG/ML VIAL PO (09:23)
--- NOTE | 2019-01-04 09:59 | NUR.NOTE ---
Nursing Note: pt reported a metallic taste in her mouth around 0940. symptoms have since resolved. no sob, no oral swelling.
[2019-01-04 10:00] VITALS: PULSE 71; RESP 16; O2SAT 99
== END 2019-01-04 09:59 | disposition home or self-care (01) ==
PROVIDERS: Emergency Provider Physician Assistant; PCP Nurse Practitioner Family
DX: J02.0 Streptococcal pharyngitis (principal)
CPT/HCPCS: 81025; 87449; 87880; 96372; 99284; J0561; J1100

== ENCOUNTER 2019-02-25 08:02 | Emergency (ER) | payer OTHER, SELFPAY ==
[2019-02-25 08:09] VITALS: BP 106/86; PULSE 87; RESP 16; TEMP 37; O2SAT 99
--- NOTE | 2019-02-25 08:19 | ED.GENADUL_ITS ---
Discharge Plan Disposition Patient Disposition: HOME Condition: Stable Discharge Details Chief Complaint: RespSymp Clinical Impression: Pharyngitis Primary Care Provider: Mitzi Lozano ED Provider: Milton Hobson Home Meds and New Rx's Prescriptions: No Action No Known Home Meds RF: 0 Discharge Instructions Instructions: Pharyngitis (ED) Stand Alone Forms: Work Release Medical Decision Making 28 yo female comes in with 2 days of sore throat and cough. Denies fevers, dyspnea or difficulty swallowing. She arrives in no dsitrses, has mild posterior pharynx erythema, midline uvula, no pain over hyoid or restricted neck movements. 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 Will d/c and advised f/u with pcp and return precautions given Differential Diagnosis Differential Diagnosis: pharyngitis, strep, uri HPI General Mode of arrival: ambulatory . Date/Time Provider Initiated Documentation: 02/25/19 08:05 . Limitations to Documentation: no limitations . Information obtained by: patient . History of Present Illness 28 year old F presents to the emergency department with the chief complaint of sore throat, described as moderate, No relieving factors improve symptom(s), No exacerba ting factors reported . Patient did receive the following treatments prior to arrival, none Related Data Home Medications Medication Instructions Recorded Confirmed Unknown [No Known Home Meds] 01/04/19 02/25/19 Allergies Allergy/AdvReac Type Severity Reaction Status Date / Time No Known Drug Allergies Allergy Unverified 02/25/19 08:13 General Stated Complaint: RespSymp RITU: 4 Review of Systems All systems reviewed & are unremarkable except as noted in HPI and below Constitutional Constitutional: Denies chills, Denies fever(s) and Denies weakness Cardiovascular Cardiovascular: Denies chest pain and Denies dyspnea Respiratory Respiratory: Denies cough and Denies dyspnea Gastrointestinal Gastrointestinal: Denies abdominal pain, Denies nausea and Denies vomiting Musculoskeletal Musculoskeletal: Denies joint swelling Neurologic Neurologic: Denies weakness Allergic/Immunologic Allergic/Immunologic: Denies urticaria [facility] Social History Smoking/Tobacco Use Status: Never Alcohol Intake: current Alcohol Intake frequency: holidays/special occasions only Drug use: Never Substance use type: does not use Do you feel safe at home: Yes Do you feel safe in your relationship?: Yes Female Reproductive History Menstrual control method: none History History 2 Para 2 Hx # Term Pregnancies Multiple births Hx # Pregnancies Ectopic pregnancies AB induced Hx Number of Living Children AB spontaneous Exam Const General: no acute distress Orientation: alert HENMT Head: normal to inspection Ears: external ears normal General nose exam: external nose normal Mouth: moist mucous membranes Eyes General: appearance normal, both eyes and all related structures Neck Neck: normal visual inspection Resp Effort & Inspection: normal respiratory effort and able to speak in complete sentences Cardio Rate: regular rate Skin General skin exam: no rashes or lesions noted Neuro General: alert and oriented x3 Extrem General: normal to inspection Psych Mental Status: mental status grossly normal Course Vital Signs Vital signs: Vital Signs Temperature 37 C 02/25/19 08:09 Pulse 87 02/25/19 08:09 Respiratory Rate 16 02/25/19 08:09 Blood Pressure 106/86 02/25/19 08:09 Pulse Oximetry 99 02/25/19 08:09 Temperature 37 C 02/25/19 08:09 Temperature Source Temporal Artery Scan 02/25/19 08:09 Pulse 87 02/25/19 08:09 Respiratory Rate 16 02/25/19 08:09 Respiratory Effort Non-Labored 02/25/19 08:13 Respiratory Depth Normal 02/25/19 08:13 Blood Pressure 106/86 02/25/19 08:09 Blood Pressure Position Sitting 02/25/19 08:09 Pulse Oximetry 99 02/25/19 08:09 Oxygen Delivery Method Room Air 02/25/19 08:09 Oxygen Flow Rate 0 02/25/19 08:09 Pain Level 8 02/25/19 08:09 Lab/Test Results Lab/Test Results: POC Strep Test-AIXA(Rapid) Start: 02/25/19 08:09 Freq: .Rapid Strep Test Status: Active Protocol: Document 02/25/19 08:17 CF (Rec: 02/25/19 08:18 CF [id number]) Strep test-AIXA(Rapid)-POC POC-Strep test-AIXA (Rapid) Negative POC-Strep test-AIXA (Rapid) Negative
== END 2019-02-25 08:34 | disposition home or self-care (01) ==
PROVIDERS: Emergency Provider Emergency Medicine; PCP Nurse Practitioner Family
DX: J02.8 Acute pharyngitis due to other specified organisms (principal)
CPT/HCPCS: 87880; 99282; 87081

== ENCOUNTER 2019-04-17 10:46 | Outpatient (REF) | payer OTHER, SELFPAY ==
[2019-04-17 12:44] LABS: HCT 39.4 % (36.0-46.0); HGB 13.1 g/dL (12.0-15.5); Mean Corp. HGB Concentration 33.2 g/dL (32.0-36.0); Mean Corpuscular Hemoglobin 30.8 pg (27.0-33.0); Mean Corpuscular Volume 92.5 fL (80-95); Mean Platelet Volume 11.2 fL (8.0-11.0); Platelet Count 235 x1000/uL (130-400); RBC 4.26 m/cumm (4.00-5.20); RBC Distribution Width 12.6 % (11.7-14.6); White Blood Cell Count 4.27 k/cumm (4.4-10.8)
[2019-04-17 12:58] LABS: Ferritin 56 ng/mL (8-252)
[2019-04-17 14:17] LABS: Iron 64 ug/dL (50-170); Total Iron Binding Capacity 296 ug/dL (250-450); Transferrin Sat 22 % (15-50)
== END 2019-04-17 11:06 ==
LOC: NCHCN 10:46
PROVIDERS: PCP Nurse Practitioner Family; Visit Provider Nurse Practitioner Family
DX: R51 Headache (principal)
CPT/HCPCS: 85027; 82728; 83540; 83550

== ENCOUNTER 2021-04-08 13:00 | Outpatient (REF) | payer OTHER, SELFPAY | END 2021-04-08 13:01 | disposition home or self-care (01) | LOC: NCHCN 13:00 | PROVIDERS: PCP Nurse Practitioner Family; Visit Provider Physician Assistant Medical | DX: L60.3 Nail dystrophy (principal) | CPT/HCPCS: 84443 ==

== ENCOUNTER 2021-05-08 17:17 | Outpatient (REF) | payer OTHER, SELFPAY | END 2021-05-08 17:18 | disposition home or self-care (01) | LOC: LBN 17:17 | PROVIDERS: PCP Nurse Practitioner Family; Visit Provider Nurse Practitioner Family | DX: R10.9 Unspecified abdominal pain (principal) | CPT/HCPCS: 87086 ==

== ENCOUNTER 2021-05-09 11:18 | Outpatient (REF) | payer OTHER, SELFPAY ==
[2021-05-09 15:00] LABS: HCT 41.6 % (36.0-46.0); HGB 13.9 g/dL (11.2-15.7); MCH 31.1 pg (27.0-33.0); MCHC 33.4 % (32.0-36.0); MCV 93.1 fL (80-95); MPV 11.5 fL (8.0-11.0); Platelet Count 236 10^3/uL (130-400); RBC 4.47 10^6/uL (3.93-5.22); RDW-SD 41.3 fL; WBC 4.59 10^3/uL (4.4-10.8)
[2021-05-09 15:03] LABS: ALT 20 U/L (14-59); AST 19 U/L (15-37); Albumin 4.4 g/dL (3.4-5.0); Alkaline Phosphatase 68 U/L (46-116); Anion Gap 9.4 mmol/L (3-11); BUN 10 mg/dL (7-18); Bilirubin, Total 0.4 mg/dL (0.2-1.0); CO2 25.6 mmol/L (21.0-32.0); CREATININE 0.6 mg/dL (0.55-1.02); Calcium 8.8 mg/dL (8.5-10.1); Chloride 102 mmol/L (98-107); Glucose 87 mg/dL (74-106); Sodium 137 mmol/L (136-145); Total Protein 7.7 g/dL (6.4-8.2)
== END 2021-05-09 11:19 | disposition home or self-care (01) ==
LOC: NCHCN 11:18
PROVIDERS: PCP Nurse Practitioner Family; Visit Provider Nurse Practitioner Family
DX: R10.11 Right upper quadrant pain (principal); R10.32 Left lower quadrant pain; R82.90 Unspecified abnormal findings in urine; R10.9 Unspecified abdominal pain
CPT/HCPCS: 80053; 85027

== ENCOUNTER 2022-03-02 16:47 | Outpatient (REF) | payer BC, SELFPAY | END 2022-03-02 16:48 | disposition home or self-care (01) | LOC: NCHCN 16:47 | PROVIDERS: PCP Nurse Practitioner Family; Visit Provider Nurse Practitioner Family | DX: M54.59 Other low back pain (principal) | CPT/HCPCS: 87086 ==

== ENCOUNTER 2022-05-25 09:30 | Outpatient (REF) | payer BC, SELFPAY ==
--- NOTE | 2022-05-25 09:30 | PAPFT_PTH ---
PATIENT: Kathie Gil LOC: [facility]#:[id number] AGE/SX: 31/F ROOM: RE05/25/[address]: Mitzi Lozano : 1990 BED: DIS: 05/25/2022 SPEC #: [id number] RECD: 05/25/22 18:44 STATUS: MIKEL REJosh #: [id number] MARCI: 05/25/22 09:[address]: Mitzi Lozano DEPT: [facility] Cytology RECD BY: Lory Campoverde Tissues: 1 - CX/ENDOCX FOR PAP SMEARS Procedures: PAP THIN PREP/UVM Screening HPV DNA PROBE Comments: [id number]
== END 2022-05-25 09:31 | disposition home or self-care (01) ==
LOC: NCHCN 09:30
PROVIDERS: PCP Nurse Practitioner Family; Visit Provider Nurse Practitioner Family
DX: Z12.4 Encounter for screening for malignant neoplasm of cervix (principal); Z00.00 Encounter for general adult medical examination without abnormal findings; Z11.51 Encounter for screening for human papillomavirus (HPV)
CPT/HCPCS: 88142; 87624

== ENCOUNTER 2022-07-08 11:28 | Emergency (ER) | payer BC, SELFPAY ==
[2022-07-08 11:34] VITALS: PULSE 86; RESP 18; TEMP 37.1; O2SAT 98
[2022-07-08 11:35] VITALS: BP 129/74
--- NOTE | 2022-07-08 11:44 | ED.GENADUL_ITS ---
Discharge Plan Disposition Patient Disposition: Home Discharge Details Clinical Impression: Pancreas cyst Primary Care Provider: Mitzi Lozano ED Provider: Glenn Felix Home Meds and New Rx's Prescriptions: Continued acetaminophen [Tylenol Extra Strength] 500 mg tablet 1,000 mg PO Q6H PRN Patient Comments: not taking magnesium 200 mg tablet 400 mg PO DAILY Patient Comments: not taking omeprazole 40 mg capsule,delayed release(DR/EC) 40 mg PO DAILY Patient Comments: not taking clindamycin HCl 300 mg capsule 300 mg PO QID Discharge Instructions Instructions: Clear Liquid Diet (ED) Additional Instructions: On today's evaluation it was noted that you had slightly elevated pancreatic enzymes and a cyst noted near your pancreas. This will need further evaluation and we have placed a referral for you to follow-up with general surgery preferably later this week. For the next 36 to 48 hours please follow the clear liquid diet and then slowly advance your diet as tolerated. Contact the surgical office tomorrow afternoon if you have not heard from them sooner to arrange your follow-up appointment. Please have a low threshold to return to the emergency department for any new or significant worsening of symptoms Stand Alone Forms: Work Release Referrals: [facility] [Provider Group] - 5 days Discharge Data Discharge Date/Time-TO BE ENTERED AT DEPARTURE: 07/08/22 15:48 Medical Decision Making Patient presenting to the emergency department for chief complaint of abdominal pain mainly in the mornings that seems to somewhat resolve throughout the day. Pain does wax and wane daily but then this morning started having some nausea. Initially patient thought maybe this was due to some constipation but she had a normal bowel movement yesterday and still having symptoms. Patient denies any fever chills, vaginal or urinary symptoms other cold-like or infectious symptoms. Physical exam does show significant tenderness to palpation of the right lower quadrant otherwise unremarkable exam. Given symptoms we will check a urine and urine , standard abdominal labs, and CT imaging. Differential diagnosis to include appendicitis, gastroenteritis secondary to antibiotic use due to patient taking antibiotics for a infected tooth, other intra-abdominal pathology. Review of patient's labs show an overall unremarkable CBC, CMP is also unremarkable. Lipase is slightly increased at 115, LFTs are within normal range patient is not , trace leukocyte Estrace noted in urine but sample did look contaminated. We will proceed with CT imaging. CT imaging shows a 2.6 abnormal cyst that may be a pancreatic lesion. Given the elevated lipase I did call and speak with Dr. Bernal the on-call general surgeon. After discussion of the case with him he agreed with plan of care for patient to be discharged on clear liquid diet, I will prescribe her some Zofran to help with nausea, and patient to follow-up with general surgery later this week given that her primary care provider has retired. Did discuss plan of care with yesenia ulloa who is agreeable to plan of care but informed her of low threshold to return for any new or significant worsening of symptoms given there is some elevated liver enzymes and a noted cyst. After discussion of diagnosis and plan of care patient has no further needs, questions, or concerns and states clear understanding to return to the emergency department for any worsening symptoms. This documentation was generated using [employer] system, please disregard any oddities of phrase or misspellings. Imaging Data Radiologic Study: Imaging: CT Scan Radiologist's impression: Exam(s) PROCEDURE INFORMATION: Exam: CT Abdomen And Pelvis With Contrast Exam date and time: 07/08/2022 2:24 PM Age: 32 years old Clinical indication: Abdominal pain; Other: Rl abd pain TECHNIQUE: Imaging protocol: Computed tomography of the abdomen and pelvis with contrast. Contrast material: OMNIPAQUE 350; Contrast volume: 80 ml; Contrast route: INTRAVENOUS (IV); COMPARISON: CT ABDOMEN PELVIS WO 12/10/2018 10:47 AM FINDINGS: Lungs: The visualized lung bases are clear. Liver: Normal. No mass. Gallbladder and bile ducts: Normal. No calcified stones. No ductal dilation. Pancreas: Posterior to the midbody of the pancreas is a well-circumscribed cystic lesion measuring 2.6 x 1.9 cm. There are no calcifications. No solid component. The wall is thin. This appears to be posterior to the splenic artery. The pancreas enhances normally. No pancreatic calcifications. No dilatation of the pancreatic duct. Spleen: Normal. No splenomegaly. Adrenal glands: The adrenal glands are unremarkable. This cystic lesion does not abut the left adrenal gland. Kidneys and ureters: 1.5 cm simple cyst in the lower pole of the right kidney. 1.0 cm simple cyst in the upper pole of the left kidney. Stomach and bowel: Unremarkable. No obstruction. No mucosal thickening. Appendix: The appendix is well seen and is normal in caliber and fills with contrast. Intraperitoneal space: Small amount of free fluid in the cul-de-sac likely physiologic. Vasculature: Unremarkable. No abdominal aortic aneurysm. Lymph nodes: No suspicious peritoneal or retroperitoneal adenopathy. No pelvic sidewall or inguinal adenopathy. Urinary bladder: Unremarkable as visualized. Reproductive: Uterus and ovaries are visualized without gross abnormalities. Bones/joints: Unremarkable. No acute fracture. Soft tissues: Unremarkable. IMPRESSION: 1. No evidence of appendicitis. 2. 2.6 cm cystic lesion posterior to the midbody of the pancreas. The splenic artery appears to course between this lesion in the pancreas. This was not noted on the prior exam and may be a mesenteric cyst, pancreatic pseudocyst or enteric duplication cyst. Although appearing separate from the pancreas, primary cystic neoplasms of the pancreas can also be considered. 3. Bilateral simple renal cysts Lab Data Lab results reviewed: Yes I reviewed the patient's lab results. Labs: Laboratory Tests Range/Units 07/08/22 07/08/22 07/08/22 11:45 11:54 11:54 WBC (4.4-10.8) 10^3/uL 5.86 RBC (3.93-5.22) 10^6/uL 4.55 Hgb (11.2-15.7) g/dL 14.1 Hct (36.0-46.0) % 41.2 MCV (80-95) fL 91 MCH (27.0-33.0) pg 31.0 MCHC (32.0-36.0) % 34.2 RDW (11.7-14.6) % 12.2 Plt Count (130-400) 10^3/uL 225 MPV (8.0-11.0) fL 10.2 Immature Gran % 0.2 Neutrophils % 59.2 Lymphocytes % 32.3 Monocytes % 6.3 Eosinophils % 1.5 Basophils % 0.5 Nucleated RBC % (0.0-0.3) % 0.0 Absolute Neutrophils (1.2-6.7) 10^3/uL 3.47 Absolute Lymphocytes (1.2-3.4) 10^3/uL 1.89 Absolute Monocytes (0.1-0.8) 10^3/uL 0.37 Absolute Eosinophils (0.0-0.7) 10^3/uL 0.09 Absolute Basophils (0.0-0.2) 10^3/uL 0.03 Sodium (136-145) mmol/L 141 Potassium (3.5-5.1) mmol/L 3.8 Chloride (98-107) mmol/L 105 Carbon Dioxide (21.0-32.0) mmol/L 26.5 Anion Gap (3-11) mmol/L 9.5 BUN (7-18) mg/dL 11 Creatinine (0.55-1.02) mg/dL 0.7 Est GFR (CKD-EPI 2020) (mL/min/1.73m2) 118.51 Glucose (74-106) mg/dL 93 Calcium (8.5-10.1) mg/dL 9.1 Magnesium (1.8-2.4) mg/dL 1.9 Total Bilirubin (0.2-1.0) mg/dL 0.5 AST (15-37) U/L 21 ALT (14-59) U/L 21 Alkaline Phosphatase (46-116) U/L 76 Total Protein (6.4-8.2) g/dL 7.8 Albumin (3.4-5.0) g/dL 4.2 Lipase (16-77) U/L 115 H Urine Color (Yellow) Yellow Urine Clarity (Clear) Clear Urine pH (5-8) 7.5 Ur Specific [place] (1.005-1.025) 1.020 Urine Protein (Negative) mg/dL Negative Urine Ketones (Negative) mg/dL Negative Urine Blood (Negative) Negative Urine Nitrite (Negative) Negative Urine Bilirubin (Negative) Negative Urine Urobilinogen (Up to 0.2) mg/dL 0.2 Ur Leukocyte Esterase (Negative) Trace H Urine RBC (0-2) HPF 0-2 Urine WBC (0-5) HPF 5-10 Ur Epithelial Cells (Negative) HPF Many Urine Crystals (Negative) HPF Negative Urine Bacteria (Negative) HPF Few Urine Casts (Negative) LPF Negative Urine Mucus (Negative) Negative Ur Culture Indicated? No/Sq. Contamination Urine Glucose (Negative) mg/dL Negative HPI General Mode of arrival: ambulatory . Date/Time Provider Initiated Documentation: 07/08/22 11:29 . Limitations to Documentation: no limitations . Information obtained by: patient and RN notes reviewed . History of Present Illness 32 year old F presents to the emergency department with the chief complaint of Abdominal pain, described as moderate, with intensity rated at 6. Quality is described as aching, and is localized to the abdomen. P atient reports no radiation. Patient started experiencing this day(s) (4) and it has been constant. No relieving factors improve symptom(s), No exacerbating factors reported . Patient did receive the following treatments prior to arrival, none Related Data Home Medications Medication Instructions Recorded Confirmed omeprazole 40 mg capsule,delayed 40 mg PO DAILY 05/10/20 05/22/21 release magnesium 200 mg tablet 400 mg PO DAILY 08/18/20 05/22/21 acetaminophen 500 mg tablet 1,000 mg PO Q6H PRN 12/21/20 05/22/21 (Tylenol Extra Strength) clindamycin HCl 300 mg capsule 300 mg PO QID 07/08/22 07/08/22 Allergies Allergy/AdvReac Type Severity Reaction Status Date / Time No Known Drug Allergies Allergy Verified 07/08/22 11:35 General Stated Complaint: Abd Prob RITU: 3 Review of Systems Constitutional Constitutional: Denies chills, Denies fever(s) and Reports poor appetite Cardiovascular Cardiovascular: Denies chest pain and Denies dyspnea Respiratory Respiratory: Denies cough and Denies dyspnea Gastrointestinal Gastrointestinal: Reports as per HPI, Reports abdominal pain, Denies melena, Denies change in bowel habits, Reports constipation, Denies diarrhea, Reports nausea and Denies vomiting Genitourinary Genitourinary: Denies hematuria, Denies dysuria, Denies urinary urgency and Denies vaginal discharge Integumentary/Breasts Skin/Breast: Denies rash PFSH All Active Problems (Updated 07/08/22 @ 15:25 by Glenn Felix NP) Pancreas cyst (Acute) Migraine headache without aura (Acute) Female infertility, secondary (Acute) Mild cognitive impairment, so stated (Acute 03/27/13) Decreased ambulation status (Acute) Medical History Anxiety GERD (gastroesophageal reflux disease) History of blood transfusion Idiopathic hyperprolactinemia Kidney stones Low back pain Nausea and vomiting Family History Sister No problems noted. Social History Smoking/Tobacco Use Status: Never Smoking risk assessment performed?: Yes Alcohol Intake: current Alcohol Intake frequency: holidays/special occasions only Drug use: Never Substance use type: does not use Household members: spouse and children Housing: apartment Number of Children: 2 Pets and animals: Yes Pets and animals: cat(s), dog(s) and snake(s) What is your relationship status?: Panel score (0-1 are the most socially isolated patients): 1 What type of physical activity do you participate in: walking and bicycling Seatbelt use: always Do you feel safe at home: Yes Do you feel safe in your relationship?: Yes Female Reproductive History Menstrual control method: none History History 2 Para 2 Hx # Term Pregnancies Multiple births Hx # Pregnancies Ectopic pregnancies AB induced Hx Number of Living Children AB spontaneous Exam Const General: cooperative Orientation: alert, awake and oriented x3 Resp Effort & Inspection: normal respiratory effort and able to speak in complete sentences Auscultation: clear to auscultation bilaterally Cardio Rate: regular rate Rhythm: regular rhythm Heart Sounds: S1 normal and S2 normal GI Palpation: soft, no hepatosplenomegaly, not firm, no guarding, no masses, no pulsatile masses, not rigid, no splenomegaly and tender in the RLQ, at McBurney's point, psoas sign positive and with rebound tenderness; Nielson's sign negative Auscultation: normal bowel sounds Back/Spine/Pelvis Back: no CVA tenderness Neuro General: patient alert, patient awake, patient oriented x3, gait normal and moves all extremities Course Vital Signs Vital signs: Vital Signs Temperature 37.1 C 07/08/22 11:34 Pulse 86 07/08/22 11:34 Respiratory Rate 18 07/08/22 11:34 Pulse Oximetry 98 07/08/22 11:34 Temperature 37.1 C 07/08/22 11:34 Temperature Source Temporal Artery Scan 07/08/22 11:34 Pulse 86 07/08/22 11:34 Respiratory Rate 18 07/08/22 11:34 Respiratory Effort Normal, Non-Labored 07/08/22 11:34 Blood Pressure 129/74 07/08/22 11:35 Pulse Oximetry 98 07/08/22 11:34 Oxygen Delivery Method Room Air 07/08/22 11:34 Oxygen Flow Rate 0 07/08/22 11:34
--- NOTE | 2022-07-08 11:45 | DI.CT_ITS ---
Exam(s) CT ABDOMEN PELVIS W EXAM: CT ABDOMEN PELVIS W CLINICAL HISTORY: RLQ abd pain. TECHNIQUE: Imaging Protocol: Axial computed tomography images with coronal and sagittal reformatted images were created and reviewed CONTRAST MATERIAL: Intravenous: Omnipaque-350 100cc Oral: Yes. Oral contrast was also administered for bowel opacification. COMPARISON: US OB US 1ST TRIMESTER TRANSABD*P from 09/02/[address] ABDOMEN PELVIS WO from 12/10/2018 FINDINGS: VISUALIZED LUNG BASES: No nodules nor pleural effusions evident. ABDOMEN: There is no ascites. LIVER: There are no focal hepatic lesions evident. No dilated intrahepatic ducts. GALLBLADDER/BILIARY: No obvious gallbladder pathology. CBD is not dilated. PANCREAS: Pancreatic head and neck and tail appear unremarkable. Pancreatic duct is not dilated. Ho wever, there is an abnormal cystic structure measuring 2.8 by 2.0 by 2.8 cm located intimately associ ated with the posterior aspect of the pancreatic body and just above the patent splenic vein. This f inding was not evident on the prior CT scan of 2019. it is interposed between the posterior aspect o f the pancreas and the left adrenal gland, medially above the level of the patent splenic vein at thi s level. SPLEEN: Spleen is not enlarged. No obvious intrasplenic lesions. Splenic and portal veins are paten t. ADRENALS: There are no significant adrenal masses. KIDNEYS:There is a 1.5 x 1.4 cm cyst in the inferior pole of the right kidney and a smaller cyst in t he posterior cortex of the left kidney measuring 1 cm. These benign findings do not require further workup. There are no solid renal masses. No calculi. No hydronephrosis. No hydroureter. No obvio us abnormality in the urinary bladder.. ABDOMINAL AORTA: Abdominal aorta is not enlarged. LYMPH NODES:There is no retroperitoneal nor paraaortic adenopathy. ABDOMINAL WALL: No evidence of significant anterior abdominal wall nor inguinal hernia. GI: There is no evidence of bowel obstruction, free air, nor abscess. PELVIS: GI: No evidence of appendicitis.No evidence of sigmoid diverticulitis. LYMPH NODES: There is no intrapelvic nor inguinal adenopathy. REPRODUCTIVE: Uterus size age-appropriate. Right ovary unremarkable. There is a cyst in left ovary which measures 2.5 x 2.1 cm. There is small amount of fluid both sides of the cul-de-sac. URINARY BLADDER: No calculi nor obvious masses evident OSSEOUS: No fractures and no significant osseous lesions. IMPRESSION: 1. No evidence of acute appendicitis. Appendix appears unremarkable. 2. There is a 2.5 x 2.1 cm cyst in the left ovary, most probably dominant follicular cyst. No promin ent surrounding fluid. Small sub cm follicular cysts are noted in the opposite-right ovary. 3. There is a cystic mass measuring 2.8 x 2.0 x 2.8 cm immediately posterior to the mid body of the p ancreas. This was not evident on the 2019 CT scan. May represent a pancreatic pseudocyst if there h as been interval pancreatitis. Enteric duplication or mesenteric cyst also possible considerations. In addition a cystic pancreatic neoplasm is also consideration, somewhat exophytic. Follow-up pancr eatic protocol MRI recommended. Findings discussed with ER provider RADIATION DOSE DELIVERED: 522.16mGy.cm Total DLP DATA REPOSITORY: All CT scans at this facility are submitted to the National Radiology Data Registry (NRDR) Dose Index Registry (DIR) with the [employer] (A[employer]). RADIATION OPTIMIZATION: All CT scans at this facility use at least one of these dose optimization te chniques: automated exposure control; mA and/or kV adjustment per patient size (includes targeted exa ms where dose is matched to clinical indication); or iterative reconstruction.
[2022-07-08 11:52] LABS: Bilirubin Negative (Negative); Blood Negative (Negative); Clarity Clear (Clear); Glucose Negative (Negative); Ketones Negative (Negative); Leukocyte Esterase Trace (Negative); Nitrite Negative (Negative); Urobilinogen 0.2 mg/dL (Up to 0.2); pH 7.5 (5-8)
[2022-07-08 12:01] LABS: Bacteria Few HPF (Negative); C & S Indicated? No/Sq. Contamination; Casts Negative LPF (Negative); Crystals Negative HPF (Negative); Epithelial Cells Many HPF (Negative); Mucus Negative (Negative); RBC 0-2 HPF (0-2)
[2022-07-08] MEDS: Normal Saline 1,000 ML 1000 ML IV (12:06)
[2022-07-08 12:08] LABS: Abs Immature Grans 0.01 10^3/uL (0.0-0.06); Absolute Basophil Count 0.03 10^3/uL (0.0-0.2); Absolute Eosinophil Count 0.09 10^3/uL (0.0-0.7); Absolute Lymphocyte Count 1.89 10^3/uL (1.2-3.4); Absolute Monocyte Count 0.37 10^3/uL (0.1-0.8); Absolute Neutrophil Count 3.47 10^3/uL (1.2-6.7); Basophils % 0.5; Eosinophils % 1.5; HCT 41.2 % (36.0-46.0); HGB 14.1 g/dL (11.2-15.7); Immature Grans % 0.2; Lymphocytes % 32.3; MCHC 34.2 % (32.0-36.0); MCV 91 fL (80-95); MPV 10.2 fL (8.0-11.0); Monocytes % 6.3; Neutrophils % 59.2; Platelet Count 225 10^3/uL (130-400); RBC 4.55 10^6/uL (3.93-5.22); RDW 12.2 % (11.7-14.6); RDW-SD 40.5 fL; WBC 5.86 10^3/uL (4.4-10.8)
[2022-07-08] MEDS: Ondansetron 4 MG/2 ML VIAL IVP (12:16)
[2022-07-08] MEDS: ACETAMINOPHEN 1,000 MG/100 ML BTL 400 MG IVPB (12:17)
[2022-07-08 12:24] LABS: ALT 21 U/L (14-59); AST 21 U/L (15-37); Albumin 4.2 g/dL (3.4-5.0); Alkaline Phosphatase 76 U/L (46-116); Anion Gap 9.5 mmol/L (3-11); BUN 11 mg/dL (7-18); Bilirubin, Total 0.5 mg/dL (0.2-1.0); CO2 26.5 mmol/L (21.0-32.0); CREATININE 0.7 mg/dL (0.55-1.02); Calcium 9.1 mg/dL (8.5-10.1); Chloride 105 mmol/L (98-107); Estimated GFR 118.51 (mL/min/1.73m2); Glucose 93 mg/dL (74-106); Lipase 115 U/L (16-77); Magnesium 1.9 mg/dL (1.8-2.4); Potassium 3.8 mmol/L (3.5-5.1); Sodium 141 mmol/L (136-145); Total Protein 7.8 g/dL (6.4-8.2)
[2022-07-08 13:26] VITALS: BP 109/75; PULSE 65; O2SAT 96
[2022-07-08] MEDS: Normal Saline - Diluent 50 ML VIAL IJ (14:25)
[2022-07-08] MEDS: Omnipaque 350 MG/ML 100 ML BTL 80 ML IJ (14:27)
[2022-07-08] MEDS: Normal Saline Flush 10 ML SYR IVP (14:28)
[2022-07-08] MEDS: Breeza Beverage 473 ML BTL 950 ML PO (14:39)
[2022-07-08] MEDS: Omnipaque 350 MG/ML 50 ML BTL IJ (14:40)
--- NOTE | 2022-07-08 14:59 | DI.VRAD_ITS ---
PROCEDURE INFORMATION: Exam: CT Abdomen And Pelvis With Contrast Exam date and time: 07/08/2022 2:24 PM Age: 32 years old Clinical indication: Abdominal pain; Other: Rl abd pain TECHNIQUE: Imaging protocol: Computed tomography of the abdomen and pelvis with contrast. Contrast material: OMNIPAQUE 350; Contrast volume: 80 ml; Contrast route: INTRAVENOUS (IV); COMPARISON: CT ABDOMEN PELVIS WO 12/10/2018 10:47 AM FINDINGS: Lungs: The visualized lung bases are clear. Liver: Normal. No mass. Gallbladder and bile ducts: Normal. No calcified stones. No ductal dilation. Pancreas: Posterior to the midbody of the pancreas is a well-circumscribed cystic lesion measuring 2.6 x 1.9 cm. There are no calcifications. No solid component. The wall is thin. This appears to be posterior to the splenic artery. The pancreas enhances normally. No pancreatic calcifications. No dilatation of the pancreatic duct. Spleen: Normal. No splenomegaly. Adrenal glands: The adrenal glands are unremarkable. This cystic lesion does not abut the left adrenal gland. Kidneys and ureters: 1.5 cm simple cyst in the lower pole of the right kidney. 1.0 cm simple cyst in the upper pole of the left kidney. Stomach and bowel: Unremarkable. No obstruction. No mucosal thickening. Appendix: The appendix is well seen and is normal in caliber and fills with contrast. Intraperitoneal space: Small amount of free fluid in the cul-de-sac likely physiologic. Vasculature: Unremarkable. No abdominal aortic aneurysm. Lymph nodes: No suspicious peritoneal or retroperitoneal adenopathy. No pelvic sidewall or inguinal adenopathy. Urinary bladder: Unremarkable as visualized. Reproductive: Uterus and ovaries are visualized without gross abnormalities. Bones/joints: Unremarkable. No acute fracture. Soft tissues: Unremarkable. IMPRESSION: 1. No evidence of appendicitis. 2. 2.6 cm cystic lesion posterior to the midbody of the pancreas. The splenic artery appears to course between this lesion in the pancreas. This was not noted on the prior exam and may be a mesenteric cyst, pancreatic pseudocyst or enteric duplication cyst. Although appearing separate from the pancreas, primary cystic neoplasms of the pancreas can also be considered. 3. Bilateral simple renal cysts Dictated and Authenticated by: Mario Chopra MD. Ordering:JOÃO Elizabeth MD
--- NOTE | 2022-07-08 15:28 | NUR.NOTE ---
Referral made to General Surgery this week per Ervin Felix for an abnomal pancreatic cyst. Put the referral in the care manger's box. Nursing Note:
[2022-07-08 15:47] VITALS: PULSE 68; O2SAT 98
== END 2022-07-08 15:48 | disposition home or self-care (01) ==
PROVIDERS: Emergency Provider Nurse Practitioner Family; PCP Nurse Practitioner Family
DX: K86.2 Cyst of pancreas (principal); R74.8 Abnormal levels of other serum enzymes
CPT/HCPCS: 80053; 81025; 83690; 96361; 96365; 96375; 99285; 74177; 81003; 81015; 83735; 85025; 99284; J0131; J2405; J3490; Q9967

== ENCOUNTER 2024-04-09 09:05 | Outpatient (CLI) | payer BC, SELFPAY ==
--- NOTE | 2024-04-09 09:55 | DI.RAD_ITS ---
Exam(s) XR CHEST 2V PA LATERAL EXAM: XR CHEST 2V PA LATERAL CLINICAL HISTORY: VIRAL SYNDROME, B34.9 TECHNIQUE: 2D digital imaging was performed. Two views. COMPARISON: No exams were available for comparison FINDINGS: HEART: Normal size. Aorta: Not dilated. PULMONARY VASCULATURE: Normal. MEDIASTINUM: Unremarkable. LUNGS: Patchy infiltrate noted in the anterior segment of the left lower lobe. The right lung is ann-marie ar. PLEURAL SPACE: No pleural effusion or pneumothorax. BONE:Unremarkable for age. SOFT TISSUES: Unremarkable. IMPRESSION: Left lower lobe pneumonia. DATA REPOSITORY: RADIATION DOSE DELIVERED:
== END 2024-04-09 09:25 ==
LOC: DI 09:05
PROVIDERS: Visit Provider Physician Assistant
DX: J18.9 Pneumonia, unspecified organism (principal)
CPT/HCPCS: 71046

== ENCOUNTER 2025-01-14 16:24 | Outpatient (REF) | payer BC, SELFPAY ==
[2025-01-14 19:13] LABS: ALT 21 U/L (14-59); AST 24 U/L (15-37); Albumin 4.2 g/dL (3.4-5.0); Alkaline Phosphatase 86 U/L (46-116); Anion Gap 9.5 mmol/L (3-11); BUN 14 mg/dL (7-18); Bilirubin, Total 0.4 mg/dL (0.2-1.0); CO2 25.5 mmol/L (21.0-32.0); Calcium 8.6 mg/dL (8.5-10.1); Chloride 103 mmol/L (98-107); Estimated GFR 99.71 (mL/min/1.73m2); Glucose 81 mg/dL (74-106); Potassium 3.8 mmol/L (3.5-5.1); Sodium 138 mmol/L (136-145); Total Protein 7.6 g/dL (6.4-8.2)
[2025-01-14 19:35] LABS: Hemoglobin A1C 5.2 % (<5.7)
[2025-01-15 19:09] LABS: Hepatitis C Ab w Rflx HCV PCR Negative (Negative)
== END 2025-01-14 16:25 | disposition home or self-care (01) ==
LOC: NCHCN 16:24
DX: Z00.00 Encounter for general adult medical examination without abnormal findings (principal)
CPT/HCPCS: 80053; 86803; 83036